=== PATIENT | female | born 1975 | race Caucasian/White ===

== ENCOUNTER 2017-01-22 11:23 | Inpatient (IN) | payer OTHER ==
[2017-01-22] MEDS ORDERED: LACTATED RINGERS 1,000 ML ONE (11:32)
[2017-01-22] MEDS ORDERED: PITOCin/NS 20 UNIT/1000ML DRIP 20,000 MILLIUNITS/1,000 ML BAG IV ONE (12:01)
[2017-01-22] MEDS ORDERED: XYLOCAINE 2% INFILTRATI ONE (12:03)
[2017-01-22] MEDS: PITOCin/NS 20 UNIT/1000ML DRIP 20 UNITS/1,000 ML BAG IV SCH ×2 (12:10→13:46)
[2017-01-22] MEDS ORDERED: STADOL IV PRN (12:21)
[2017-01-22] MEDS ORDERED: BRETHINE IVP PRN (12:21)
[2017-01-22] MEDS ORDERED: BRETHINE SUB-Q PRN (12:21)
[2017-01-22] MEDS ORDERED: ePHEDrine SULFATE IV PRN (12:21)
[2017-01-22] MEDS ORDERED: LANSINOH TP PRN (12:23)
[2017-01-22] MEDS ORDERED: TUCKS PAD TP PRN (12:23)
[2017-01-22] MEDS ORDERED: PHENERGAN PR PRN (12:23)
[2017-01-22] MEDS ORDERED: BENADRYL PO PRN (12:23)
[2017-01-22] MEDS ORDERED: DULCOLAX PR PRN (12:23)
--- NOTE | 2017-01-22 12:31 | History and Physical Report ---
History of Present Illness Date of examination: 01/22/17 Date of admission: 01/22/17 11:26 Chief complaint: Intense labor Pains History of present illness: Late entry to care at 21 Weeks at [facility], uncomplicated course. Past History Past Medical History: no pertinent history Past Surgical History: no surgical history Family/Genetic History: diabetes (father) Social history: - Obstetrical History Expected Date of Delivery: 02/03/17 Actual Gestation: 38 Week(s) 2 Day(s) : 6 Para: 4 Hx # Term Pregnancies: 3 Number of Pregnancies: 1 Spontaneous Abortions: 1 Number of Living Children: 4 #1 Infant Gender: Male year: 1,[birth year] Birthweight: 3.629 kg Method of Delivery: Vaginal Gestational age at delivery: 40 #2 Infant Gender: Male year: 2,[birth year] Birthweight: 1.814 kg Method of Delivery: Vaginal Gestational age at delivery: 27 #3 Infant Gender: Female year: 2,[birth year] Birthweight: 3.175 kg Method of Delivery: Vaginal Gestational age at delivery: 40 #4 Gender: Female year: 2,014 Birthweight: 3.175 kg Method of Delivery: Vaginal Gestational age at delivery: 39 Complications: none Medications and Allergies Allergies Allergy/AdvReac Type Severity Reaction Status Date / Time Penicillins AdvReac Hives Verified 07/20/13 08:15 Home Medications Medication Instructions Recorded Confirmed Last Taken Type Sulfamethoxazole/Trimethoprim 1 each PO BID #10 tablet 08/25/14 Unknown Rx [Bactrim Ds] metroNIDAZOLE [Flagyl] 500 mg PO BID #14 tablet 08/25/14 Unknown Rx Naproxen [Naprosyn TAB] 500 mg PO BID #30 tablet 08/29/14 Unknown Rx traMADol [Ultram 50 MG tab] 50 mg PO Q6HR PRN #10 tablet 08/29/14 Unknown Rx Active Meds: Active Medications Acetaminophen/Hydrocodone Bitart (Lostant 5/325) 2 each PO Q4H PRN PRN Reason: Pain, Moderate (4-6) Bisacodyl (Dulcolax) 10 mg DC BID PRN PRN Reason: Constipation Butorphanol Tartrate (Stadol) 2 mg IV Q2H PRN PRN Reason: Pain , Severe (7-10) Diphenhydramine HCl (Benadryl) 25 mg PO Q6H PRN PRN Reason: Itching Ephedrine Sulfate (Ephedrine Sulfate) 10 mg IV Q2M PRN PRN Reason: Hypotension Stop: 01/22/17 12:26 Lactated Ringer's (Lactated Ringers) 1,000 mls @ 125 mls/hr IV DIRECT MORTEZA Oxytocin/Sodium Chloride (Pitocin/Ns 20 Unit/1000ml Drip) 20 units in 1,000 mls @ 125 mls/hr IV DIRECT MORTEZA Ibuprofen (Motrin) 600 mg PO Q6H MORTEZA Measles/Mumps/Rubella Vaccine Live (M-M-R Ii Vaccine) 0.5 ml SUB-Q .ONCE ONE Stop: 01/23/17 12:24 Multi-Ingredient Ointment (Lansinoh) 1 applic TP PRN PRN PRN Reason: Sore Nipples Promethazine HCl (Phenergan) 25 mg DC Q6H PRN PRN Reason: Nausea And Vomiting Sodium Chloride (Sodium Chloride Flush Syringe 10 Ml) 10 ml IV PRN NR Terbutaline Sulfate (Brethine) 0.25 mg SUB-Q ONCE PRN PRN Reason: Hyperstimulation/Hypertonicity Stop: 01/22/17 12:22 Terbutaline Sulfate (Brethine) 0.25 mg IVP ONCE PRN PRN Reason: Hyperstimulation/Hypertonicity Stop: 01/22/17 12:22 Witch Aurora/Glycerin (Tucks Pad) 1 each TP PRN PRN PRN Reason: Hemorrhoid/cleansing/soothing Review of Systems All systems: negative - Vital Signs Vital signs: Vital Signs Temp Pulse Resp Pulse Ox 98.6 F 91 H 18 99 01/22/17 11:40 01/22/17 11:40 01/22/17 11:40 01/22/17 11:40 Temp Pulse Resp BP Pulse Ox 98.6 F 110 H 18 133/91 100 01/22/17 11:40 01/22/17 12:23 01/22/17 11:40 01/22/17 12:21 01/22/17 12:23 - Physical Exam Breasts: Positive: normal Lungs: Positive: Clear to auscultation Abdomen: Positive: normal appearance, soft, normal bowel sounds Genitourinary (Female): Positive: normal external genitalia, normal perenium Vagina: Positive: normal moisture Uterus: Positive: enlarged - Obstetrical FHR: category 1 Uterine Contraction Monitor Mode: External Cervical Dilatation: 9 (SROM of a moderate amount of fluid at 1155) Cervical Effacement Percentage: 100 station: +1 Uterine Contraction Pattern: Regular Uterine Contraction Intensity: Strong/Firm Results All other labs normal. Assessment and Plan A: IUP @ 38 weeks 2 days Category I Tracing Active labor GBS negative P: Admit to L&D per routine orders
--- NOTE | 2017-01-22 12:40 | Procedure Note ---
OB Delivery Note - Delivery Date of Delivery: 01/22/17 (1159) Surgeon: YONAS CUMMINGS Estimated blood loss: 300cc - Vaginal Delivery presentation: vertex Delivery position: OA Intrapartum events: foul smelling fluid Delivery induction: none Delivery monitor: external FHT, external uterine Route of delivery: Delivery placenta: spontaneous Delivery cord: 3 umbilical vessels Episiotomy: none Delivery laceration: 1st degree Delivery repair: vicryl Anesthesia: local Delivery comments: of a live 7'3 female over a 1st degree perineal laceration without pain control with Apgars of 8 and 8 at 1159 on 01/22/2017. directly to maternal abd/chest, skin to skin contact. Perineal laceration repaired with 2- [address]-1 under local 2% Lidocaine. Spontaneous delivery of placenta complete and intact with Parra side presenting at 1210. Fundus is firm and midline located 3 below the U. Lochia is scant. Delayed cord clamping and cutting; Cord cut by 's brother. Placenta to pathology due to a foul odor. - Infant A at 1 minute: 8 at 5 minutes: 9 Gender: Female (7'3)
[2017-01-22 12:44] LABS: Hematocrit 35.7 % (30.3-42.9); Hemoglobin 11.6 gm/dl (10.1-14.3); Mean Corpuscular HGB Conc 32 % (30-34); Mean Corpuscular Hemoglobin 27 pg (28-32); Mean Corpuscular Volume 84 fl (79-97); Platelet Count 216 K/mm3 (140-440); Red Blood Count 4.23 M/mm3 (3.65-5.03); Red Cell Distribution Width 14.2 % (13.2-15.2); White Blood Count 16.5 K/mm3 (4.5-11.0)
[2017-01-22] MEDS ORDERED: SODIUM CHLORIDE FLUSH SYRINGE 10 ML IV NR (13:00)
[2017-01-22] MEDS ORDERED: LACTATED RINGERS 1,000 ML IV SCH (13:00)
[2017-01-22] MEDS: MOTRIN PO SCH ×2 (13:20→20:03)
[2017-01-22] MEDS: NORCO 5/325 PO PRN (16:04)
[2017-01-23 01:22] LABS: Hematocrit 30.6 % (30.3-42.9); Hemoglobin 10.1 gm/dl (10.1-14.3)
[2017-01-23] MEDS: NORCO 5/325 PO PRN (01:57)
[2017-01-23] MEDS: MOTRIN PO SCH ×3 (01:58→23:39)
[2017-01-23] MEDS ORDERED: M-M-R II VACCINE SUB-Q ONE (06:00)
[2017-01-23] MEDS ORDERED: BOOSTRIX IM ONE (06:00)
--- NOTE | 2017-01-23 10:10 | Progress Note ---
Assessment and Plan A: PP Day #1 Stable P: Follow Routine Orders Depo Provera 150mg IM x 1 dose D/C Home today per patient request RTO in 6 Weeks Subjective - Subjective Date of service: 01/23/17 Interval history: Late entry to care at 21 Weeks at [facility], uncomplicated course. Patient reports: appetite normal, voiding normally, pain well controlled, flatus , ambulating normally [place]: doing well, bottle feeding Objective - Vital Signs Latest vital signs: Vital Signs Temp Pulse Resp BP BP Pulse Ox 01/23/17 00:40 98.1 F 79 18 95/52 01/22/17 20:53 98.9 F 102 H 20 136/60 01/22/17 16:15 98.8 F 85 16 122/78 01/22/17 14:27 99.2 F 88 18 118/68 01/22/17 13:23 92 H 99 01/22/17 13:21 91 H 118/60 01/22/17 13:20 18 01/22/17 13:18 99 H 98 01/22/17 13:13 94 H 98 01/22/17 13:12 82 93 01/22/17 13:08 96 H 98 01/22/17 13:06 93 H 121/64 01/22/17 13:03 90 98 01/22/17 12:58 96 H 97 01/22/17 12:53 91 H 99 01/22/17 12:51 98 H 122/70 01/22/17 12:48 97 H 98 01/22/17 12:43 99 H 98 01/22/17 12:40 100 H 136/66 01/22/17 12:38 103 H 149/92 98 01/22/17 12:37 103 H 147/95 01/22/17 12:36 102 H 141/85 01/22/17 12:34 111 H 89 01/22/17 12:33 109 H 99 01/22/17 12:28 112 H 100 01/22/17 12:23 110 H 100 01/22/17 12:21 115 H 133/91 01/22/17 12:18 93 H 100 01/22/17 12:15 98.5 F 102 H 20 133/60 01/22/17 12:13 95 H 98 01/22/17 12:08 97 H 98 01/22/17 12:06 100 H 127/79 01/22/17 12:03 89 97 01/22/17 11:58 95 H 99 01/22/17 11:53 91 H 99 01/22/17 11:51 83 117/71 01/22/17 11:50 92 H 92 01/22/17 11:48 86 97 01/22/17 11:43 88 99 01/22/17 11:40 98.6 F 91 H 18 99 Intake and Output 01/22/17 01/23/17 01/23/17 22:59 06:59 14:59 Intake Total 730 Output Total 900 Balance -170 Intake: IV 250 PITOCin/NS 20 UNIT/1000ML 250 DRIP 20 units In 1,000 ml @ 125 mls/hr IV DIRECT MORTEZA Rx#:[id number] Oral 480 Output: Urine 900 Indwelling Catheter 400 Void 500 Other: Total, Intake Amount 480 Total, Output Amount 500 # Voids Indwelling Catheter 1 - Exam Breasts: Present: normal Cardiovascular: Present: Regular rate Lungs: Present: Clear to auscultation, Normal air movement Abdomen: Present: normal appearance, soft, normal bowel sounds Uterus: Present: normal, firm, fundal height below umbilicus Extremities: Present: normal - Labs Labs: Abnormal lab results 01/22/17 Range/Units 11:50 WBC 16.5 H (4.5-11.0) K/mm3 MCH 27 L (28-32) pg
--- NOTE | 2017-01-23 10:11 | Discharge Summary ---
Providers - Providers Date of Admission: 01/22/17 11:26 Date of discharge: 01/23/17 Attending physician: LESLIE IBANEZ MD Primary care physician: LESLIE IBANEZ MD Hospitalization Reason for admission: active labor Delivery: Episiotomy: none Laceration: 1st degree Other procedures: none complications: none Discharge diagnosis: IUP at term delivered baby: female Condition at discharge: Good Disposition: DC-01 TO HOME OR SELFCARE Plan - Provider Discharge Summary Activity: routine, no sex for 6 weeks, no heavy lifting 4 weeks, no strenuous exercise Diet: routine Instructions: routine Additional instructions: [] Smoking cessation referral if applicable(refer to patient education folder for contact #) [] Refer to [facility]'s [facility] Booklet Call your doctor immediately for: * Fever > 100.5 * Heavy vaginal bleeding ( >1 pad per hour) * Severe persistent headache * Shortness of breath * Reddened, hot, painful area to leg or breast * Drainage or odor from incision. * Keep incision clean and dry at all times and follow doctor's instructions regarding bathing/showering - Follow up plan Follow up: TANVI SHAH CNM [Advanced Practice Nurse] - 6 Weeks
[2017-01-23] MEDS ORDERED: DEPO-PROVERA (CONTRACEPTION) IM NR (10:30)
[2017-01-24] MEDS: MOTRIN PO SCH ×3 (06:41→18:11)
[2017-01-24] MEDS ORDERED: DEPO-PROVERA (CONTRACEPTION) IM NR (10:30)
[2017-01-24 19:22] VITALS: BP 120/63
== END 2017-01-24 21:10 | disposition home or self-care (01) | DRG 775 ==
LOC: TRG 11:23 → LD 11:26 → OB 14:27
PROVIDERS: ADMIT Obstetrics & Gynecology; ATTEND Obstetrics & Gynecology
PROC: 10E0XZZ Delivery of Products of Conception, External Approach (ICD-10-PCS; principal; 2017-01-22)
PROC: 0HQ9XZZ Repair Perineum Skin, External Approach (ICD-10-PCS; 2017-01-22)
PROC: 3E013BZ Introduction of Anesthetic Agent into Subcutaneous Tissue, Percutaneous Approach (ICD-10-PCS; 2017-01-22)
PROC: 3E0234Z Introduction of Serum, Toxoid and Vaccine into Muscle, Percutaneous Approach (ICD-10-PCS; 2017-01-22)
DX: O70.0 First degree perineal laceration during delivery (principal); O09.43 Supervision of pregnancy with grand multiparity, third trimester; O09.33 Supervision of pregnancy with insufficient antenatal care, third trimester; Z3A.38 38 weeks gestation of pregnancy; Z37.0 Single live birth; Z88.0 Allergy status to penicillin; Z23 Encounter for immunization; Z83.3 Family history of diabetes mellitus
CPT/HCPCS: 36415; 85014; 85018; 85027; 86850; 86900; 86901; 88307; 90471; 90715; J1050; J2590; J7120